=== PATIENT | female | born 1965 | race Two or more races ===

== ENCOUNTER 2021-12-26 10:46 | Emergency (ER) | payer OTHER ==
[~2021-12-26] VITALS: Ht 162.6 cm; Wt 74.8 kg
[2021-12-26] MEDS ORDERED: ATARAX25 MG PO (14:40)
[2021-12-26] MEDS ORDERED: MEDROLPACK PO (14:40)
[2021-12-26] MEDS ORDERED: ZYRTEC10 M3 PO (14:40)
== END 2021-12-26 14:59 | disposition home or self-care (01) ==
LOC: ER 10:46
DX: R21 Rash and other nonspecific skin eruption (principal); Z20.822 Contact with and (suspected) exposure to COVID-19; Z88.6 Allergy status to analgesic agent